=== PATIENT | male | born 1975 | race Caucasian/White ===

== ENCOUNTER 2018-02-05 10:34 | Emergency (ER) | payer SELFPAY ==
[~2018-02-05] VITALS: Ht 188 cm; Wt 82.0 kg
[2018-02-05 10:47] VITALS: BP 148/98
[2018-02-05] MEDS ORDERED: TETRACAINE/BENZOCAINE/BUTAMBEN 20 GM SPRAY MM ONE (12:54)
[2018-02-05] MEDS ORDERED: KETOROLAC 30MG/ML VIAL IV ONE (13:45)
[2018-02-05] MEDS ORDERED: DEXAMETHASONE 4MG/ML 1ML VIAL IV ONE (13:45)
== END 2018-02-05 15:28 | disposition home or self-care (01) ==
LOC: ER 11:59
DX: J36 Peritonsillar abscess (principal); F12.10 Cannabis abuse, uncomplicated; I10 Essential (primary) hypertension; Z87.440 Personal history of urinary (tract) infections
CPT/HCPCS: 42700; 87070; 87430; 96374; 96375; 99283; J1100; J1885

== ENCOUNTER 2019-04-22 03:18 | Emergency (ER) | payer SELFPAY ==
[~2019-04-22] VITALS: Ht 188 cm; Wt 82.0 kg
[2019-04-22] MEDS ORDERED: IBUPROFEN 600MG TABLET PO ONE (04:45)
[2019-04-22 05:01] VITALS: BP 157/95
== END 2019-04-22 05:03 | disposition home or self-care (01) ==
LOC: ER 03:18
DX: J03.90 Acute tonsillitis, unspecified (principal); L53.9 Erythematous condition, unspecified; F12.10 Cannabis abuse, uncomplicated
CPT/HCPCS: 99282

== ENCOUNTER 2019-04-23 14:07 | Emergency (ER) | payer SELFPAY ==
[~2019-04-23] VITALS: Ht 188 cm; Wt 85.0 kg
[2019-04-23] MEDS ORDERED: DEXAMETHASONE 4MG TABLET PO ONE (15:00)
[2019-04-23] MEDS ORDERED: LIDOCAINE HCL 1% 20ML VIAL (Pyxis) INJ INFIL ONE (15:00)
[2019-04-23] MEDS ORDERED: CEFTRIAXONE SODIUM 1 G/VIAL IM ONE (15:00)
[2019-04-23] MEDS ORDERED: ACETAMINOPHEN 500MG TABLET PO ONE (15:00)
[2019-04-23 15:38] VITALS: BP 155/94
== END 2019-04-23 16:28 | disposition home or self-care (01) ==
LOC: ER 14:07
DX: J36 Peritonsillar abscess (principal); F12.10 Cannabis abuse, uncomplicated
CPT/HCPCS: 96372; 99283; J0696; J3490; J8540